=== PATIENT | female | born 1975 | race Caucasian/White ===

== ENCOUNTER 2019-01-07 06:52 | Inpatient (IN) ==
[2019-01-07] MEDS ORDERED: SODIUM CHLORIDE 0.9% INJ ONE ×2 (07:00→09:54)
[2019-01-07] MEDS ORDERED: PEPCID IV ONE (07:00)
[2019-01-07] MEDS ORDERED: ZOFRAN IV ONE (07:00)
[2019-01-07] MEDS ORDERED: MORPHINE IV ONE ×2 (07:00→08:58)
[2019-01-07] MEDS ORDERED: NS 1,000 ML IV ONE ×3 (07:00→09:20)
[2019-01-07] MEDS ORDERED: HUMULIN R IV ONE ×2 (07:00→11:15)
--- NOTE | 2019-01-07 07:10 | PROVIDER DOCUMENTATION ---
HPI-Abdominal Pain/GI Problem - General Chief Complaint: Nausea/Vomiting Stated Complaint: n/v Time Seen by Provider: 01/07/19 06:57 Source: patient, EMS Allergies/Adverse Reactions: Patient Allergies Allergy/AdvReac Type Severity Reaction Status Date / Time No Known Allergies Allergy Verified 01/07/19 08:09 Home Medications: Home Medication List Medication Instructions Recorded Confirmed Last Taken Type NK [No Home Medications] 01/07/19 01/07/19 Unknown History - History of Present Illness-ABD Nature of Presenting Problems: No significant past medical history, this 43 yo female states she got sick about 3 days ago while travelling. Began with N/V and then developed right sided chest pain. This morning was confused, so mother called 911. EMS found patient altered, ill appearing with D-Stick reading greater than 600. States has never been a diabetic, no history in family of DM. Patient is a tobacco user, but denies drug or alcohol. Takes no meds. Abdominal Pain Onset Location: reports: RUQ Pain Radiation: reports: chest (right sided chest pain) Quality of Pain: reports: aching, sharp, stabbing Severity in ED: reports: severe Onset/Duration: reports: 3 days ago Timing: reports: still present, constant, getting worse Activities at Onset: reports: light activity, other (travelling) Exposure to sick contacts?: No Modifying Factors: improves with: nothing. worse with: vomiting Associated Symptoms: reports: anxiety, diaphoresis, dizziness, fatigue, loss of appetite, malaise, muscle aches, nausea, shortness of breath, vomiting, weakness Last BM: unsure Dark Stools Present?: reports: none noticed Rectal Pain: reports: none Emesis Description: reports: clear Bruising or Bleeding Gums?: No Similar Symptoms Previously?: No Recently seen or treated by another doctor?: No Review of Systems - Adult - REVIEW OF SYSTEMS - ADULT Constitutional: reports: see HPI, chills, weight loss Eyes: reports: blurred vision (the last day or two). denies: discharge, dry eyes, decreased vision Ears, Nose, Mouth & Throat: reports: no symptoms reported Cardiovascular: reports: see HPI, chest pain (right sided). denies: heart murmur, irregular heart rate, orthopnea, palpitations, syncope Respiratory: reports: see HPI, shortness of breath. denies: chronic cough, cough, dyspnea on exertion, excessive sputum production, hemoptysis, pleurisy, wheezing Gastrointestinal: reports: see HPI, abdominal pain (RUQ), nausea, poor appetite, vomiting. denies: hematemesis, diarrhea Genitourinary: reports: frequency, urgency. denies: dysuria, discharge, flank pain, frequent UTI's, hematuria, hesitency, incontinence, urinary retention Musculoskeletal: reports: see HPI, muscle aches, muscle weakness Integumentary: reports: no symptoms reported Neurological: reports: no symptoms reported Psychiatric: reports: no symptoms reported Endocrine: reports: increased thirst, polyuria. denies: see HPI, change in skin pigment, excessive sweating, goiter, cold intolerance, heat intolerance, incr eased hunger Hematologic/Lymphatic: reports: no symptoms reported Allergic/Immunologic: reports: no symptoms reported All Other Systems: Reviewed and Negative Past History - Adult - PAST MEDICAL HISTORY-ADULT Review of Records: reports: Old Records Reviewed, Nursing Assessment Review, Medications Reviewed, Social history reviewed & non-contributory. Major Childhood Illnesses: reports: denies history Cardiovascular: reports: denies history Respiratory: reports: denies history Gastrointestinal: reports: denies history Obstetrical/Gynecological: reports: denies history Genitourinary: reports: denies history Musculoskeletal: reports: denies history Neurological: reports: denies history Psychiatric: reports: anxiety Endocrine/Immune: reports: denies history Other Conditions: reports: denies history - PRIOR SURGERIES/PROCEDURES Surgical/Procedure History: reports: reviewed, not pertinent - IMMUNIZATION STATUS Childhood Immunizations: UTD Flu Vaccine: NUTD - FAMILY HISTORY Family History: reviewed, not pertinent - SOCIAL HISTORY Smoking: cigarettes, greater than 1 pack/day Provider spent 3-5 mins advising pt. on dangers of tobacco.: Discussed manners to quit use, and f/u contacts for add'l counseling. Substance Use: none/never Alcohol Use Frequency: never Living Situation: family Physical Exam-General - PHYSICAL EXAM-ADULT Initial Vital Signs Reviewed: Yes (tachycardic, tachypneic, acetone on breath) - CONSTITUTIONAL General Appearance: moderate distress, thin, anxious, lethargic, other (dry heaving) - EYES Eyes: sunken eyes - HEAD, EARS, NOSE, MOUTH & THROAT HENMT: normocephalic/atraumatic, other (dry mucous membrane). negative: pharynx normal - NECK Neck: non-tender, full range of motion, supple, normal inspection - RESPIRATORY Respiratory: chest non-tender, lungs clear, no respiratory distress, decreased breath sounds, increased rate - CARDIOVASCULAR Cardiovascular: normal peripheral pulses, regular rate, rhythm, no edema, no gallop, tachycardia - GASTROINTESTINAL (ABDOMEN) Abdominal Exam: normal bowel sounds, non tender, soft, tenderness (mild diffuse and RUQ pain) - LYMPHATIC Lymphatic: no adenopathy - MUSCULOSKELETAL Back Exam: normal inspection, no CVA tenderness, no vertebral tenderness Extremity: normal range of motion, non-tender, normal inspection, no pedal edema , no calf tenderness, normal capillary refill - SKIN Integumentary: warm/dry, pallor, other (poor turgor) - NEUROLOGIC 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, grossly normal, no motor/sensory deficits - PSYCHIATRIC Psych/Mental Status: normal thought content, normal thought process, oriented x 3, anxious Progress - PLAN OF CARE/RESULTS Progress/Plan/Lab Results: Laboratory Results - last 24 hr 01/07/19 06:58 POC Glucose 469 H Orders Category Date Time Status ED: Urine Bedside ORDERED Care 01/07/19 07:04 Ordered Finger Stick Blood Sugar (ED) DIRECTED Care 01/07/19 06:58 Ordered Frias Cath Insertion ORDERED Care 01/07/19 06:58 Ordered Nursing- Obtain EKG once Care 01/07/19 06:58 Ordered Saline Loc NOW Care 01/07/19 06:58 Ordered CHEST-PORTABLE [RAD] Stat Exams 01/07/19 06:59 Ordered ABG [RESP] Stat Lab 01/07/19 06:58 Ordered ACETONE SERUM [CHEM] Stat Lab 01/07/19 06:58 Uncollected ALCOHOL BLOOD Stat Lab 01/07/19 06:58 Uncollected BLOOD CULTURE [BLDCUL] Stat Lab 01/07/19 06:58 Uncollected CBC WITH ELECTRONIC DIFF [HEME] Stat Lab 01/07/19 06:58 Uncollected CK PROFILE [SP CHEM] Stat Lab 01/07/19 06:58 Uncollected COMPREHENSIVE METABOLIC PANEL [CHEM] Stat Lab 01/07/19 06:59 Uncollected D-DIMER [COAG] Stat Lab 01/07/19 06:59 Uncollected LACTATE, PLASMA [CHEM] Stat Lab 01/07/19 06:59 Uncollected LIPASE [CHEM] Stat Lab 01/07/19 06:59 Uncollected MAGNESIUM [CHEM] Stat Lab 01/07/19 06:59 Uncollected PRO B-NATRIURETIC PEPTIDE Stat Lab 01/07/19 06:59 Uncollected TROPONIN T Stat Lab 01/07/19 06:59 Uncollected URINALYSIS W/POSS RFLX CULT [URINALYSIS] Stat Lab 01/07/19 06:59 Uncollected URINE DRUG SCREEN Stat Lab 01/07/19 06:59 Uncollected phos [PHOSPHORUS] [CHEM] Stat Lab 01/07/19 06:59 Uncollected Famotidine [Pepcid] Med 01/07/19 07:00 Once 20 mg IV NOW ONE Insulin Human Regular [Humulin R] Med 01/07/19 07:00 Once 10 unit IV NOW ONE Morphine Med 01/07/19 07:00 Once 2 mg IV NOW ONE Ns 1000 ml IV Bolus X1 Med 01/07/19 07:00 Ordered 0.9% Sodium Chloride Inj [Ns] 1,000 ml IV 999 mls/hr Ns 1000 ml IV Bolus X1 Med 01/07/19 07:00 Ordered 0.9% Sodium Chloride Inj [Ns] 1,000 ml IV 999 mls/hr Ondansetron [Zofran] Med 01/07/19 07:00 Once 4 mg IV NOW ONE Sodium Chloride 0.9% Med 01/07/19 07:00 Once 5 - 10 ml INJ NOW ONE EKG [EKG] Stat Ther 01/07/19 06:54 Ordered Result Diagrams: 01/07/19 07:30 01/07/19 07:30 - REASSESSMENT Reassessment #1 Time Reassessed: 08:56 Status: improving (Given 2L of IVF, IV insulin bolus and drip. ALso given multiple meds for nausea and pain. I supervised RN placing left sided EJ line) - EKG 1 Time of EKG reading by physician:: 07:18 EKG Read and Signed by:: Hi Blue EKG Interpretation (*Must complete 3 of following elements*): Abnormal Rate: 122 Rhythm: sinus tachy [place]: normal QRS: poor R wave progression ID Interval: normal ST Wave: non-specific ST changes Prior EKG Comparison: no prior EKG - XRAY 1 XRAY Study: Chest Impression: Normal, See EMR Report (EXAM: CHEST-PORTABLE INDICATION: right chest pain TECHNIQUE: One view COMPARISON: None. FINDINGS: The lungs are grossly clear. There is no discrete pleural fluid collection or pneumothorax. The cardiomediastinal silhouette and central vasculature are grossly unremarkable. IMPRESSION: No evidence of acute pathology by plain radiograph. Electronically signed by Filipe Estrada 01/07/2019 8:13 AM 01/07/19 0813 Interpreting Physician: Filipe Estrada MD Dictated Date/Time: 01/07/19 0812 cc: Hi Blue MD; None,PCP) - CONSULTS/PCP/HOSPITALIST Notification #1 *Consult/PCP/Hospitalist*: Мария Nina Time Discussed: 08:57 Consult Disposition: Will see in ED, Admit Departure - Departure Date of Disposition Decision: 01/07/19 Time of Disposition Decision: 08:59 DIAGNOSIS: Diabetes mellitus, new onset, Right-sided chest pain Diabetic ketoacidosis without coma Qualifiers: Diabetes mellitus type: type 2 Qualified Code(s): E11.10 - Type 2 diabetes mellitus with ketoacidosis without coma Disposition: ADMITTED INPATIENT 09 Certified Medical Emergency: Emergent Condition: Critical Referrals and Follow-Ups: None,PCP [Primary Care Provider] - - Critical Care Note This patient required my direct & personal management of CC.: Yes Total Time (mins): 40 Critical Care Statement: This patient required my direct personal management to treat or rule out processes, the absence of which, could potentiallly result in sudden, clinically significant life or limb threatening deterioration. Attestation - Physician/ EDMOND Attestation Patient care was provided by Advanced Practice Provider:: No The physician spent face to face time with patient:: Yes Advanced Practice Provider documentation review:: Supervising physician onsite and consulted in the evaluation and care of this patient. The physician did have a face to face encounter with the patient.
[2019-01-07] MEDS ORDERED: PHENERGAN IM ONE (07:20)
[2019-01-07] MEDS ORDERED: REGLAN IV ONE (07:37)
[2019-01-07] MEDS ORDERED: BENADRYL IV ONE (07:37)
[2019-01-07 07:58] LABS: BASO# 0.07 X1000 (0.0-0.2); BASO% 0.2 % (0.0-0.8); HEMATOCRIT 46.3 % (37.0-47.0); HEMOGLOBIN 15.3 g/dL (12.0-16.0); IMM GRAN% 1.3 % (0.0-0.5); LYMPH# 3.64 X1000 (1.2-3.4); LYMPH% 9.2 % (20.5-51.1); MCH 26.2 PG (27-31); MCV 79.4 FL (81-99); MONO# 2.68 X1000 (0.11-0.59); MONO% 6.8 % (1.7-9.3); MPV 9.1 FL (7.4-10.4); NEUT# 32.72 X1000 (1.4-6.5); NEUT% 82.5 % (42.2-75.2); PLT 604 X1000 (130-400); RBC 5.83 XMIL (4.2-5.4); RDW 12.9 % (11.5-14.5); WBC 39.61 X1000 (4.8-10.8)
[2019-01-07 07:58] LABS: ALLEN TEST YES; BLOOD TYPE ARTERIAL; HCO3-(ACT) 7.7 mmoll (20.0-26.0); METHB 1.3 % (0.0-1.5); O2(CT) 21.4 mL/dL (15.0-23.0); O2HB 96.8 % (95.0-99.0); PO2(98.6) 129 mmHg (60-100); SAMPLE BLOOD; THB 15.6 g/dL (11.5-17.4)
[2019-01-07 08:00] LABS: pH(98.6) 7.17 (7.35-7.45)
[2019-01-07 08:01] LABS: PCO2(98.6) 10 mmHg (35-45)
[2019-01-07] MEDS ORDERED: HUMULIN R 100 UNIT in NS 99 ML IV ONE (08:02)
[2019-01-07 08:13] LABS: ACETONE SERUM MODERATE (NEGATIVE)
--- NOTE | 2019-01-07 08:15 | Diag Imaging Result Doc PS360 ---
EXAM: CHEST-PORTABLE INDICATION: right chest pain TECHNIQUE: One view COMPARISON: None. FINDINGS: The lungs are grossly clear. There is no discrete pleural fluid collection or pneumothorax. The cardiomediastinal silhouette and central vasculature are grossly unremarkable. IMPRESSION: No evidence of acute pathology by plain radiograph. Electronically signed by Filipe Estrada 01/07/2019 8:13 AM
[2019-01-07 08:20] LABS: BANDS 2 % (0-1); LYMPHS 11 % (21-51); MONO 4 % (1-9); SEGS 81 % (42-75)
[2019-01-07 08:28] LABS: URINE SOURCE CATH
[2019-01-07 08:29] LABS: AGAP 45; ALB/GLOB RATIO 1.4; ALBUMIN 5.3 g/dL (3.5-5.0); ALKALINE PHOSPHATASE 210 U/L (32-104); BUN 45 mg/dL (8-22); CALCIUM 10.4 mg/dL (8.8-10.2); CHLORIDE 86 mmol/L (98-107); CK PROFILE 165 U/L (24-173); COSMO 310; CREATININE 1.2 mg/dL (0.5-0.9); ESTIMATED GFR 49; GOT 19 U/L (10-30); GPT 25 U/L (10-36); LIPASE 27 U/L (13-60); MAGNESIUM 2.5 mg/dL (1.5-2.7); PHOSPHORUS 7.1 mg/dL (2.7-4.5); POTASSIUM 4.3 mmol/L (3.5-5.1); SODIUM 134 mmol/L (136-145); TCO2 3 mmol/L (25-35); TOTAL BILIRUBIN 0.41 mg/dL (0.20-1.00); TOTAL PROTEIN 9.2 g/dL (6.3-8.3)
[2019-01-07 08:34] LABS: GLUCOSE 651 mg/dL (70-104)
[2019-01-07 08:40] LABS: UR AMPHETAMINES QUAL NONE DETECTED (NONE DETECT); UR BARBITUATES QUAL NONE DETECTED (NONE DETECT); UR BENZODIAZEPIN QUAL NONE DETECTED (NONE DETECT); UR CANNABINOIDS QUAL NONE DETECTED (NONE DETECT); UR COCAINE QUAL NONE DETECTED (NONE DETECT); UR METHADONE QUAL NONE DETECTED (NONE DETECT); UR OPIATES QUAL NONE DETECTED (NONE DETECT); UR OXYCODONE QUAL NONE DETECTED (NONE DETECT); UR PCP QUAL NONE DETECTED (NONE DETECT)
[2019-01-07 08:41] LABS: BILIRUBIN URINE NEGATIVE (NEGATIVE); BLOOD URINE NEGATIVE (NEGATIVE); COLOR YELLOW; GLUCOSE URINE >1000 mg/dL (NEGATIVE); KETONE URINE >150 mg/dL (NEGATIVE); LEUKOCYTES URINE NEGATIVE (NEGATIVE); NITRITE URINE NEGATIVE (NEGATIVE); PROTEIN URINE TRACE mg/dL (NEGATIVE); TURBIDITY URINE CLEAR (CLEAR); UROBILINOGEN URINE NORMAL (NORMAL)
[2019-01-07 09:04] LABS: SP GRAVITY URINE 1.016; UR EPITHELIAL CELLS <10 /HPF (<10); URINE BACTERIA NEGATIVE /HPF; URINE RBC <10 /HPF (<10); URINE WBC <10 /HPF (<10)
[2019-01-07] MEDS ORDERED: PROTONIX IV ONE (09:54)
--- NOTE | 2019-01-07 10:39 | Diag Imaging Result Doc PS360 ---
EXAM: CT THORAX/ABDOMEN W/O CONTRAST INDICATION: Eval for esophageal rupture, gastroenteritis TECHNIQUE: This exam was performed using automated exposure control, adjustment of mA or kV according to patient size, and/or use of iterative reconstruction technique. COMPARISON: None. FINDINGS: CHEST: The lungs are clear. There are no airspace consolidations. There is no pleural fluid collection and no pneumothorax. There is no pneumomediastinum. There is gas in the esophageal lumen and the esophageal wall appears somewhat thickened suggesting possible esophagitis. There are no abnormal mediastinal fluid collections. No discrete mediastinal or hilar lymphadenopathy is identified. There is no cardiomegaly. The bony structures of the thorax are grossly intact. ABDOMEN/PELVIS: There has been a prior cholecystectomy. The liver, spleen, pancreas, adrenal glands, and kidneys are unremarkable. There is a Frias catheter in the lumen of the urinary bladder. The bladder is partially distended. There is air in the lumen of the urinary bladder are seen to be due to catheter placement. No urinary bladder wall thickening is identified. There has been a prior hysterectomy. The appendix is normal. There is focal narrowing involving the ascending colon that can be seen on image 124 series 3. It is nonspecific. It may simply represent peristalsis. However, it would be difficult to exclude underlying stricture or mass. There is no evidence of bowel obstruction. No other focal bowel wall thickening is identified. The remainder of the GI tract is grossly unremarkable by unenhanced CT. The bony structures of the abdomen and pelvis are grossly intact. IMPRESSION: 1.At least mild thickening of the esophageal wall with patchy luminal gas suggesting possible esophagitis. There is no sign of esophageal perforation. 2.Focal narrowing of a short segment of the ascending colon. Please see above discussion. 3.Other incidental/nonacute findings detailed above. Electronically signed by Filipe Estrada 01/07/2019 10:37 AM
[2019-01-07 11:13] LABS: PTT 30.5 Seconds (22.3-41.8)
--- NOTE | 2019-01-07 11:13 | HISTORY AND PHYSICAL ---
CHIEF COMPLAINT: Nausea, vomiting with right-sided chest pain. HISTORY OF PRESENT ILLNESS: This is a 43-year-old female who denies any prior health history who presented to the emergency room after 911 was called by her aunt after finding the patient confused. She reports being in her usual state of health until 3 days ago. She developed a sudden onset of nausea and vomiting associated with abdominal pain. During the night symptoms became intractable with associated right sided chest pain and black vomitus. Her aunt found her confused this morning and called 911. According to EMS, the patient was altered with dry heaves with a blood glucose reading greater than 600. ER work up revealed elevated anion gap metabolic acidosis with ketosis and blood glucose 651. Of note, the patient's mother last week with her being yesterday in [place]. She and her aunt are traveling back to [place] which is their home. PAST MEDICAL HISTORY: Denies. PAST SURGICAL HISTORY: Denies. SOCIAL HISTORY: She smokes. She denies alcohol or illicit drug use. ALLERGIES: No known drug allergies. HOME MEDICATIONS: None. REVIEW OF SYSTEMS: Discussed with the patient with pertinent positives stated in HPI. She denied any syncope, dizziness, any palpitations, any cough, fever, chills, any night sweats, any black or bloody vomitus, any diarrhea, constipation, black or bloody stools, any hematuria, dysuria. PHYSICAL EXAMINATION: GENERAL: This is a 43-year-old, very ill-appearing female who is lying in the stretcher in the emergency room. VITAL SIGNS: Blood pressure is 106/76 with a heart rate of 126. It is ranging from 120 to 132 it looks like. Respirations are 24 to 26, O2 saturations are 100%. EYES: Pupils are equal, round, react to light. EOMs are intact. Sclerae anicteric. HEAD, EARS, NOSE, AND THROAT: Head is normocephalic, atraumatic. Mucous membranes are dry. NECK: Supple with trachea midline. CARDIOVASCULAR: Regular rate and rhythm. S1 and S2 appreciated. She has no lower extremity edema. Calves are nontender bilateral with peripheral pulses palpable x4 extremities. PULMONARY: Breath sounds are clear. No increased work of breathing noted. Chest rises and falls symmetric respiration. Chest wall is nontender to palpation GASTROINTESTINAL: Abdomen is soft. She has generalized tenderness. Nondistended with bowel sounds in all 4 quadrants. NEUROLOGIC: She is alert. She is oriented to person and family. She knows she is at the hospital but does not remember what state or what hospital. SKIN: Warm and dry with poor turgor. LABORATORY STUDIES: WBC is 39.6 with hemoglobin 15.3, hematocrit 46.3, and platelets 604,000. D- dimer is less than 0.27. Sodium 134, potassium 4.3, BUN 45, creatinine 1.2 with a glucose of 651. Alkaline phosphatase is 210. Urinalysis is essentially negative. Urine drug screen reveals none detected. Acetone is moderate. Chest x-ray reveals no evidence of acute pathology. ASSESSMENT: 1. Diabetic ketoacidosis. The patient will be admitted to ICU. She will be placed on DKA protocol. 2. New onset diabetes mellitus. 3. Right-sided chest pain. continue to trend cardiac enzymes and troponins. Telemetry. 4. Gastrointestinal bleed. The patient has positive Gastroccult as well as stool for occult blood. Protonix 80 mg IV push now and then 40 mg IV b.i.d., Carafate liquid q.[address] of the chest, abdomen, and pelvis. We will check a CBC at 2 p.m. and in the morning. If H&H decline, GI will be consulted. 5. Leukocytosis. Blood cultures, urine cultures are pending. We will start antibiotics and follow. 6. Acute kidney injury. We will provide hydration and trend labs q.4 h. 7. For DVT prophylaxis will use SCDs and GI prophylaxis of Protonix. PLAN: The patient will be admitted to ICU. Will be placed on telemetry. Further treatments pending hospital course. Dictated by SHELBY Daly for Michel Pierce MD cc: SHELBY Daly MD I agree with most components of history, physical, assessment and plan. A separate addendum has been dictated. GURWINDER
[2019-01-07] MEDS ORDERED: POTASSIUM CHLORIDE 10% LIQUID PO PRN (11:15)
[2019-01-07] MEDS ORDERED: HUMULIN R 100 UNIT in NS 99 ML IV SCH (11:15)
[2019-01-07] MEDS ORDERED: SODIUM PHOSPHATE 30 MMOL in D5W 250 ML IV PRN (11:15)
[2019-01-07] MEDS ORDERED: POTASSIUM CHLORIDE 40 MEQ/SWI 40 MEQ/100 ML IVPB IV PRN (11:15)
[2019-01-07] MEDS ORDERED: POTASSIUM CHLORIDE 20% LIQUID PO PRN (11:15)
[2019-01-07] MEDS ORDERED: MAGNESIUM SULFATE 2 GM/S.W.I. 2 GM/50 ML IVPB IV PRN (11:15)
[2019-01-07] MEDS ORDERED: D50W SYRINGE IV PRN (11:15)
[2019-01-07] MEDS ORDERED: SODIUM BICARBONATE 8.4% 100 MEQ in STERILE WATER INJ. 500 ML IV PRN (11:15)
[2019-01-07] MEDS: D5 NS 1,000 ML IV SCH ×2 (11:29→17:00)
[2019-01-07] MEDS: NS 1,000 ML IV SCH ×2 (11:34→18:21)
[2019-01-07 12:10] LABS: AGAP 26; BUN 36 mg/dL (8-22); CALCIUM 8.2 mg/dL (8.8-10.2); CHLORIDE 104 mmol/L (98-107); COSMO 298; CREATININE 0.9 mg/dL (0.5-0.9); ESTIMATED GFR > 60; GLUCOSE 324 mg/dL (70-104); PHOSPHORUS 2.9 mg/dL (2.7-4.5); POTASSIUM 3.5 mmol/L (3.5-5.1); SODIUM 139 mmol/L (136-145); TCO2 9 mmol/L (25-35)
[2019-01-07 12:28] LABS: CK INDEX 1.8 (0.0-2.5); CK-MB 5.54 ng/mL (0.0-5.0)
--- NOTE | 2019-01-07 13:31 | HISTORY AND PHYSICAL ---
Addendum to History and Physical dictated by the nurse practitioner. I agree with most components of history, physical, assessment, and plan. In brief, Ms. Mays is a 43-year-old lady with past medical history of cerebrovascular accident in 2016 without any residual defects and no other known past medical history, who came in with chief complaints of nausea/vomiting and abdominal pain of about 3 days' duration. The patient was in her usual state of health until 3 days ago when she had visited [place] for the of her mother. Later on, she suddenly started developing nausea and vomiting multiple times, associated with abdominal pain. Today morning, her nausea/vomiting, abdominal pain become intractable]and she also started developing chest pain and so she came to this hospital. History is limited as patient is in excruciating pain and is not able to communicate very well because of pain, and no other family members are present. In the emergency room, she was found to have elevated anion gap metabolic acidosis with hyperglycemia and ketosis, likely DKA. She also had bloody vomitus as per the report, so hospitalist team was consulted for further management. At the time of my evaluation, she complains that her chest hurts and her abdomen hurts and she has been in a lot of pain. We discussed about her clinical exam findings, lab findings, and I answered all of her questions. She denies any known history of diabetes. PHYSICAL EXAMINATION: VITALS: Temperature of 97.3, pulse of 110, respiratory rate 20, blood pressure 110/85, saturating 99% on 2 L nasal cannula. GENERAL: On physical examination, patient is in moderate distress because of chest and abdominal pain. HEENT: Pupils are bilaterally equal, reacting to light. Oral cavity is dry. There are flecks of old blood that I could see adherent to soft and hard palate. No tonsillar enlargement. LUNGS: Air entry bilaterally equal. No wheeze, rhonchi, crackles. CARDIOVASCULAR: S1, S2 normal. No murmur, rub, or gallop. Tachycardic. ABDOMEN: Soft. There is generalized tenderness, especially in the epigastric and hypogastric region. GENITOURINARY: She has a urine catheter in place. EXTREMITIES: No extremity edema. NEUROLOGIC: She is tossing in the bed and does not appear to have any focal weakness. LABORATORY DATA: Labs suggestive of leukocytosis, normocytic anemia normal thrombocytosis. Coagulation profile, PT, INR and PTT have not been collected yet, which I have ordered. BMP suggestive of hyponatremia, hypochloremia. She has what appears to be kidney dysfunction. We do not have prior laboratories. She does have hypercalcemia, hyperphosphatemia, hyperglycemia, elevated anion gap metabolic acidosis which is well compensated. There is also a component of contraction metabolic alkalosis. MICROBIOLOGY: Group A rapid Streptococcus antigen was negative. Influenza screen was negative. Stool culture and gastric occult blood are positive. Blood cultures are pending. IMAGING: Chest x-ray on admission did not have any acute pathology. Chest, abdomen CT had detected esophagitis, possibly focal. Ascending colon narrowing which could also be related to peristalsis. ASSESSMENT AND PLAN: 1. Diabetic ketoacidosis, likely in the setting of new onset diabetes. 2. Chest pain and abdominal pain, likely in the setting of intractable nausea and vomiting in the setting of diabetic ketoacidosis. 3. Upper gastrointestinal bleed, likely related to Mony-Mendoza tear versus acute gastritis versus peptic ulcer disease. 4. Kidney dysfunction likely due to JUMA with hyponatremia, hypochloremia, hypercalcemia, and hypophosphatemia, also in the setting of volume depletion. PLAN: I will get coagulation studies. The patient has already received intravenous fluids. We will continue to give her intravenous fluids and insulin according to DKA protocol with close monitoring of electrolytes. We will start her on pantoprazole IV q.12 h. If her hematocrit drops significantly low, at that point I will consider consulting Gastroenterology for need for EGD. I will admit the patient in ICU for profound metabolic acidosis and DKA with suspected hematemesis and upper GI bleed. Plan of care discussed with the patient. All of her questions have been answered. COORDINATION TIME: More than 30 minutes were spent in taking care of this critically ill patient. cc: Michel Pierce MD [facility]Michael
[2019-01-07] MEDS: CARAFATE LIQUID PO SCH ×2 (13:48→20:31)
[2019-01-07] MEDS: ZOFRAN IV PRN ×2 (14:54→19:40)
[2019-01-07] MEDS: MORPHINE IV PRN ×2 (14:54→18:00)
[2019-01-07] MEDS ORDERED: POTASSIUM CHLORIDE 20 MEQ/SWI 20 MEQ/100 ML IVPB IV ONE (16:30)
--- NOTE | 2019-01-07 16:34 | Diag Imaging Result Doc PS360 ---
EXAM: CHEST-PORTABLE INDICATION: central line placement TECHNIQUE: One view COMPARISON: 01/07/2019 FINDINGS: There is a newly placed right IJ line. The tip projecting over the lower SVC in the expected position. The lungs remain clear. There is no discrete pleural fluid collection or pneumothorax. The cardiomediastinal silhouette and central vasculature are grossly unremarkable. IMPRESSION: Interval placement of a right IJ line with no evidence of pneumothorax postplacement. Electronically signed by Filipe Estrada 01/07/2019 4:32 PM
[2019-01-07 17:55] LABS: HEMATOCRIT 37.2 % (37.0-47.0); HEMOGLOBIN 12.7 g/dL (12.0-16.0); MCH 26.8 PG (27-31); MCHC 34.1 g/dL (33-37); MCV 78.5 FL (81-99); MPV 8.5 FL (7.4-10.4); RBC 4.74 XMIL (4.2-5.4); RDW 12.8 % (11.5-14.5); WBC 23.48 X1000 (4.8-10.8)
[2019-01-07 18:21] LABS: AGAP 18; BUN 24 mg/dL (8-22); CALCIUM 8.6 mg/dL (8.8-10.2); CHLORIDE 117 mmol/L (98-107); COSMO 309; CREATININE 0.7 mg/dL (0.5-0.9); ESTIMATED GFR > 60; GLUCOSE 195 mg/dL (70-104); MAGNESIUM 2.1 mg/dL (1.5-2.7); PHOSPHORUS 2.4 mg/dL (2.7-4.5); SODIUM 151 mmol/L (136-145); TCO2 16 mmol/L (25-35)
--- NOTE | 2019-01-07 18:24 | OPERATIVE NOTE ---
PROCEDURE DATE: 01/07/2019 NAME OF PROCEDURE: Right-sided internal jugular intravenous central line placement. INDICATION FOR PROCEDURE: Need for intravenous access for delivery of medications. The patient had poor peripheral IV access. PROCEDURE PERFORMED BY: Dr. Michel Pierce. CONSENT: Initially, an ultrasound-guided peripheral IV line was attempted which was unsuccessful. The patient was explained about the need for a good intravenous access for the delivery of medication, and central line option was provided. Benefits of central line versus risks of central line, such as introduction of infection, bleeding, and pneumothorax, were explained to the patient. After understanding the risks versus benefits, the patient herself had provided consent to get the central line. Prior to beginning the procedure, time out confirmed patient date of , site, and the procedure. PROCEDURE: Sterile precautions were taken. Initially, the area of the right neck was cleaned with Betadine. The patient was put in Trendelenburg position. During the entire procedure, her hemodynamics, including pulse, blood pressure, and cardiac rhythm, were monitored in ICU. Proper site was identified using an ultrasound. 1% of lidocaine was injected to numb the internal jugular area. After maintaining sterile precautions, a needle was introduced under ultrasound guidance in the right-sided internal jugular vein with gush of blood return. Then, a guidewire was introduced and needle was removed, keeping the guidewire always under control. A scalpel was used to make a daniel around the guidewire, and a dilator was introduced to dilate the area around the guidewire. Later on, a triple-lumen central line catheter was introduced over the guidewire. The guidewire was withdrawn through the brown port of the central line, and as soon as the guidewire came out, central line was introduced up to 15 cm. After introduction of the central line, flushes were used to confirm the blood flow in all 3 ports. Then, the central line was sutured and secured over the neck region. A sterile dressing was applied. The patient tolerated the procedure very well. Chest x-ray was performed which had confirmed central line in right- sided superior vena cava without any pneumothorax. cc: Michel Pierce MD [facility]
[2019-01-07 18:55] LABS: HEMOGLOBIN A1C 15.7 % (4.8-6.0)
[2019-01-07 19:01] LABS: CK INDEX 1.4 (0.0-2.5); CK-MB 5.23 ng/mL (0.0-5.0)
[2019-01-07] MEDS ORDERED: TYLENOL PR PRN (19:11)
[2019-01-07] MEDS: D5 1/2 NS 1,000 ML IV SCH (19:39)
--- NOTE | 2019-01-07 20:16 | PROGRESS NOTE ---
DATE: 01/07/2019 ADDENDUM: I inserted a central line and then I talked with the nurse. Apparently patient was still having abdominal pain so I have changed her pain regimen to hydromorphone 1 mg IV every 4 hours as needed. I also started patient on acetaminophen if she develops fever. Patient has not had any bloody vomiting since she has been in the hospital. I will continue to monitor CBC. If her hemoglobin drops tomorrow also considering hemodilution aspect of it I will consider consulting Gastroenterology tomorrow, however currently she appears to be maintaining her blood pressure well. cc: Michel Pierce MD
[2019-01-07] MEDS: PROTONIX IV SCH (21:22)
[2019-01-07] MEDS: DILAUDID IV PRN (21:43)
[2019-01-07 22:22] LABS: AGAP 13; BUN 21 mg/dL (8-22); CALCIUM 8.4 mg/dL (8.8-10.2); CHLORIDE 117 mmol/L (98-107); COSMO 303; CREATININE 0.7 mg/dL (0.5-0.9); ESTIMATED GFR > 60; GLUCOSE 234 mg/dL (70-104); PHOSPHORUS 1.4 mg/dL (2.7-4.5); POTASSIUM 3.9 mmol/L (3.5-5.1); SODIUM 147 mmol/L (136-145); TCO2 17 mmol/L (25-35)
[2019-01-07] MEDS: POTASSIUM CHLORIDE 20 MEQ/SWI 20 MEQ/100 ML IVPB IV PRN (22:56)
[2019-01-08] MEDS: CARAFATE LIQUID PO SCH ×4 (01:13→20:58)
[2019-01-08] MEDS: ZOFRAN IV PRN ×2 (01:37→08:10)
[2019-01-08] MEDS: DILAUDID IV PRN ×7 (01:38→23:23)
[2019-01-08] MEDS: D5 1/2 NS 1,000 ML IV SCH ×4 (02:28→23:22)
[2019-01-08 02:30] LABS: AGAP 13; BUN 16 mg/dL (8-22); CALCIUM 8.5 mg/dL (8.8-10.2); CHLORIDE 118 mmol/L (98-107); COSMO 303; CREATININE 0.6 mg/dL (0.5-0.9); ESTIMATED GFR > 60; GLUCOSE 238 mg/dL (70-104); POTASSIUM 3.5 mmol/L (3.5-5.1); SODIUM 148 mmol/L (136-145); TCO2 17 mmol/L (25-35)
[2019-01-08 02:51] LABS: MAGNESIUM 2.1 mg/dL (1.5-2.7); PHOSPHORUS 1.5 mg/dL (2.7-4.5)
[2019-01-08] MEDS: POTASSIUM CHLORIDE 20 MEQ/SWI 20 MEQ/100 ML IVPB IV PRN ×4 (02:51→16:50)
[2019-01-08 05:57] LABS: ALLEN TEST YES; BE -5.6 mmoll (-3.0-3.0); BLOOD TYPE ARTERIAL; HCO3-(ACT) 20.5 mmoll (20.0-26.0); METHB 1.4 % (0.0-1.5); O2(CT) 17.1 mL/dL (15.0-23.0); O2HB 96.3 % (95.0-99.0); PCO2(98.6) 29 mmHg (35-45); PO2(98.6) 108 mmHg (60-100); SAMPLE BLOOD; SAO2 99.5 % (95.0-100.0); THB 12.5 g/dL (11.5-17.4)
[2019-01-08 05:58] LABS: MODALITY ROOM AIR
[2019-01-08 06:15] LABS: BASO# 0.02 X1000 (0.0-0.2); BASO% 0.1 % (0.0-0.8); EOS# 0.01 X1000 (0.0-0.7); EOS% 0.1 % (0.0-10.0); HEMATOCRIT 36.7 % (37.0-47.0); HEMOGLOBIN 12.5 g/dL (12.0-16.0); IMM GRAN# 0.08 X1000 (0.0-0.04); IMM GRAN% 0.4 % (0.0-0.5); LYMPH# 1.88 X1000 (1.2-3.4); LYMPH% 9.4 % (20.5-51.1); MCH 26.8 PG (27-31); MCHC 34.1 g/dL (33-37); MCV 78.6 FL (81-99); MONO# 1.44 X1000 (0.11-0.59); MONO% 7.2 % (1.7-9.3); MPV 8.6 FL (7.4-10.4); NEUT# 16.52 X1000 (1.4-6.5); NEUT% 82.8 % (42.2-75.2); PLT 421 X1000 (130-400); RBC 4.67 XMIL (4.2-5.4); RDW 13.2 % (11.5-14.5); WBC 19.95 X1000 (4.8-10.8)
[2019-01-08 06:32] LABS: AGAP 15; ALB/GLOB RATIO 1.2; ALBUMIN 3.8 g/dL (3.5-5.0); ALKALINE PHOSPHATASE 135 U/L (32-104); BUN 12 mg/dL (8-22); CALCIUM 8.9 mg/dL (8.8-10.2); CHLORIDE 117 mmol/L (98-107); COSMO 303; CREATININE 0.6 mg/dL (0.5-0.9); ESTIMATED GFR > 60; GLUCOSE 232 mg/dL (70-104); GOT 16 U/L (10-30); GPT 15 U/L (10-36); MAGNESIUM 2.2 mg/dL (1.5-2.7); PHOSPHORUS 1.5 mg/dL (2.7-4.5); POTASSIUM 3.9 mmol/L (3.5-5.1); SODIUM 149 mmol/L (136-145); TCO2 17 mmol/L (25-35); TOTAL BILIRUBIN 0.46 mg/dL (0.20-1.00)
[2019-01-08] MEDS: PROTONIX IV SCH ×2 (08:10→20:00)
[2019-01-08] MEDS: SODIUM CHLORIDE 0.9% INJ SCH ×2 (08:11→20:00)
--- NOTE | 2019-01-08 08:18 | EKG Report ---
Test Performed on : 01/07/2019 07:02:49 AM Test Reason : chest pain Blood Pressure : / mmHG Vent. Rate : 122 BPM Atrial Rate : 122 BPM P-R Int : 142 ms QRS Dur : 088 ms QT Int : 332 ms P-R-T Axes : 072 065 060 degrees QTc Int : 473 ms Sinus tachycardia. Possible Anterior infarct , age undetermined Abnormal ECG No previous ECGs available Unconfirmed Result
[2019-01-08] MEDS: REGLAN IV PRN ×2 (09:17→23:23)
--- NOTE | 2019-01-08 09:55 | PROGRESS NOTE ---
DATE: 01/08/2019 INTERVAL HISTORY: Ms. Mays was in the ICU. She did not have any acute overnight events. She has not had any more hematemesis episodes. She continues to have abdominal pain for which I have to increase the hydromorphone dose. Her DKA has almost resolved. SUBJECTIVE: She is complaining of pain in the throat, chest, and abdomen. VITALS: She had a fever of 100 degrees Fahrenheit, pulse of 97, respiratory rate 16, blood pressure 130/69, saturating 96% on room air. PHYSICAL EXAMINATION: She appears in mild to moderate distress because of pain. Oral cavity is dry with old flecks of blood. Air entry bilaterally equal. No wheeze, rhonchi, or crackles. S1 and S2 normal. Tachycardic. No murmur, rub, or gallop. Abdomen is soft. Generalized tender, especially in the epigastric region. Active bowel sounds. No lower extremity edema. She does have tenderness affecting chest and epigastric region. She has urine catheter, right-sided internal jugular central venous line. LABS: Suggestive of improving leukocytosis, stable hemoglobin, stable platelet count, resolution of acidosis, hypernatremia, hyperchloremia, low bicarbonate, and anion gap of 15. She does have hypophosphatemia. She is currently on D5 half-normal saline and insulin drip. MICROBIOLOGY: Urine culture, no growth to date. Blood culture, no growth to date. IMAGING: EKG had sinus tachycardia. No other new imaging. ASSESSMENT AND PLAN: 1. Diabetic ketoacidosis in the setting of undiagnosed new onset diabetes mellitus. Continue patient according to diabetic ketoacidosis protocol and keep her nothing per oral currently, considering her persistent nausea and vomiting. Continue insulin drip and D5. Her hemoglobin A1c was more than 15. 2. Hematemesis and upper gastrointestinal bleed in the setting of intractable nausea, vomiting, and persistent abdominal pain. Her hematemesis has resolved and hemoglobin is stable. However, she continues to have nausea and chest and abdominal pain. CT scan of the chest and abdomen did not detect any perforation. I am suspecting diabetic gastroparesis versus peptic ulcer disease versus acute gastritis. Continue intravenous Protonix twice a day. She has not been able to take sucralfate. I will consult gastroenterology for need for upper endoscopy depending on her course. 3. Acute kidney injury with electrolyte abnormalities in the setting of diabetic ketoacidosis, resolved after intravenous fluid resuscitation. 4. Tobacco abuse with active smoking. She is denying any tobacco withdrawal at the moment. I will continue to monitor. 5. Others. Continue hydromorphone as needed for abdominal pain, electrolyte repletion as per diabetic ketoacidosis protocol, add metoclopramide for persistent nausea and vomiting. 6. Disposition. More than 30 minutes of critical care time were spent in taking care of this patient. Plan of care discussed with her. I will continue to monitor patient in intensive care unit. I reevaluated the patient in ICU. She continues to have significant abdominal pain. GI team is in ICU and I have been informed that an EGD is planned. I discussed the plan of care with patient's aunt at bedside who I assume is a next surrogate. I answered all of her questions. cc: Michel Pierce MD [facility]TD[facility]
[2019-01-08 10:28] LABS: MAGNESIUM 2.2 mg/dL (1.5-2.7); PHOSPHORUS 1.6 mg/dL (2.7-4.5)
[2019-01-08 10:32] LABS: AGAP 13; BUN 10 mg/dL (8-22); CALCIUM 8.8 mg/dL (8.8-10.2); CHLORIDE 117 mmol/L (98-107); COSMO 302; CREATININE 0.5 mg/dL (0.5-0.9); ESTIMATED GFR > 60; GLUCOSE 219 mg/dL (70-104); POTASSIUM 3.7 mmol/L (3.5-5.1); SODIUM 149 mmol/L (136-145); TCO2 19 mmol/L (25-35)
[2019-01-08] MEDS: PHENERGAN IV PRN ×3 (11:46→19:55)
[2019-01-08] MEDS: G.I. COCKTAIL PO SCH ×3 (13:08→17:14)
[2019-01-08] MEDS: LEVSIN-SL SL SCH ×3 (13:08→17:14)
[2019-01-08 16:22] LABS: MAGNESIUM 2.2 mg/dL (1.5-2.7); PHOSPHORUS 1.5 mg/dL (2.7-4.5)
[2019-01-08 16:25] LABS: AGAP 13; BUN 8 mg/dL (8-22); CALCIUM 8.8 mg/dL (8.8-10.2); CHLORIDE 115 mmol/L (98-107); COSMO 301; CREATININE 0.5 mg/dL (0.5-0.9); ESTIMATED GFR > 60; GLUCOSE 222 mg/dL (70-104); POTASSIUM 3.8 mmol/L (3.5-5.1); SODIUM 149 mmol/L (136-145); TCO2 21 mmol/L (25-35)
--- NOTE | 2019-01-08 17:48 | GASTROENTEROLOGY CONSULTATION ---
DATE: 01/08/2019 REASON FOR CONSULTATION: Intractable nausea, vomiting, abdominal pain. HISTORY OF PRESENT ILLNESS: This is a 43-year-old, female with no prior medical history. Per records, the patient is originally from [place]. Her aunt is with her. They had attended the patient's mother's in [place] on . They were traveling back to [place]. Patient had become sick on Tuesday. Per aunt's report, they stopped at a hotel here locally. Patient's symptoms worsened to the point that 911 was called due to altered mental status. Per records the patient was found to have a blood glucose of over 600. Patient was brought into the emergency room, and workup revealed diabetic ketoacidosis. Patient is currently on an insulin drip. She is complaining of nausea and vomiting with abdominal pain. Most of information is obtained from the aunt. The patient is awake and alert, but she is in pain and not able to assist with full review of systems. She is having episodes of dry heaves at the time of my evaluation. The nurse had emesis contents available noted to be brownish in color. The patient did report some hematemesis. No reported fever or chills. The aunt states that patient had not really eaten much over the last several days. As noted her symptoms continued to progress, and she had altered mental status so 911 was called from the hotel they were stating at. PAST MEDICAL HISTORY: None reported. PAST SURGICAL HISTORY: None reported. ALLERGIES: No known drug allergies. HOME MEDICATIONS: No home medications reported. SOCIAL HISTORY: Positive for tobacco use. No reported alcohol or illicit drug use. REVIEW OF SYSTEMS: Per history of present illness. PHYSICAL EXAMINATION: Vital Signs: Temperature 98.8 degrees, pulse 97, respirations 17, blood pressure 120/75. General: The patient is awake and alert. She is complaining of diffuse abdominal pain along with nausea and episodes of vomiting. At the time of my evaluation, patient was having dry heaves. She is being treated for diabetic ketoacidosis. This is a new diagnosis of diabetes for the patient. HEENT: Normocephalic, atraumatic. Pupils equal, round, reactive to light. Sclerae nonicteric. Cardiovascular: Regular rate and rhythm. Pulmonary: Lung sounds essentially clear. Abdomen: Soft, with tenderness on palpation, hypoactive bowel sounds. Neurological: She is awake and alert. She is complaining of severe abdominal pain along with nausea and vomiting. DIAGNOSTIC RESULTS: Laboratory: Hematology - WBC 19.95, hemoglobin 36.7, MCV 78.6, platelets 421,000. Chemistry: Sodium 149, potassium 3.8, chloride 115, CO2 21, BUN 8, creatinine 0.5, glucose 222. Calcium 8.8, phosphorus 1.5, magnesium 2.2. Total bilirubin 0.46, AST 16, ALT 15, alkaline phosphatase 135. Toxicology drug screen: None detected. Acetone level moderate. IMAGING: Abdominal and chest CT scan: 1. Findings showing thickening of the esophageal wall, possibly esophagitis. No evidence of esophageal perforation. 2. Focal narrowing of short segment of the ascending colon. ASSESSMENT AND PLAN: 1. Diabetic ketoacidosis. Patient is on diabetic ketoacidosis protocol with insulin drip. 2. New onset diabetes mellitus. Continuing on insulin drip. 3. Intractable nausea, vomiting, and abdominal pain. Patient has been started on proton pump inhibitor. Patient is also receiving Carafate and gastrointestinal cocktail. Continue symptomatic treatment. 4. Leukocytosis. Antibiotics have been started. Blood cultures have been ordered. 5. Gastrointestinal symptoms possibly related to new onset diabetic ketoacidosis. Continue current protocol. Continue symptomatic treatment and supportive care. Further plans will be made according to her progress. Further gastrointestinal workup will be made if symptoms do not improve. Continue proton pump inhibitor, Carafate and gastrointestinal cocktail. I have discussed this case with Dr. Power, and he has also seen and evaluated the patient. Thank you for this consultation. Dictated by SHELBY Arndt for Jayesh Power MD cc: SHELBY Rios MD
[2019-01-08] MEDS: SODIUM CHLORIDE 0.9% INJ PRN (19:54)
[2019-01-08 21:01] LABS: AGAP 10; BUN 7 mg/dL (8-22); CALCIUM 8.6 mg/dL (8.8-10.2); CHLORIDE 113 mmol/L (98-107); COSMO 295; CREATININE 0.4 mg/dL (0.5-0.9); ESTIMATED GFR > 60; GLUCOSE 223 mg/dL (70-104); MAGNESIUM 2.2 mg/dL (1.5-2.7); PHOSPHORUS 1.1 mg/dL (2.7-4.5); POTASSIUM 3.3 mmol/L (3.5-5.1); SODIUM 146 mmol/L (136-145); TCO2 23 mmol/L (25-35)
[2019-01-09] MEDS: CARAFATE LIQUID PO SCH ×4 (01:04→21:57)
[2019-01-09 01:15] LABS: AGAP 10; BUN 7 mg/dL (8-22); CALCIUM 8.7 mg/dL (8.8-10.2); CHLORIDE 115 mmol/L (98-107); COSMO 297; CREATININE 0.4 mg/dL (0.5-0.9); ESTIMATED GFR > 60; GLUCOSE 186 mg/dL (70-104); PHOSPHORUS 1.1 mg/dL (2.7-4.5); POTASSIUM 3.6 mmol/L (3.5-5.1); SODIUM 148 mmol/L (136-145); TCO2 23 mmol/L (25-35)
[2019-01-09] MEDS: PHENERGAN IV PRN ×3 (02:47→21:34)
[2019-01-09] MEDS: SODIUM CHLORIDE 0.9% INJ PRN ×3 (02:48→21:34)
[2019-01-09] MEDS: DILAUDID IV PRN ×4 (02:48→19:43)
[2019-01-09 05:49] LABS: AGAP 11; BUN 7 mg/dL (8-22); CALCIUM 8.5 mg/dL (8.8-10.2); CHLORIDE 114 mmol/L (98-107); COSMO 299; CREATININE 0.4 mg/dL (0.5-0.9); ESTIMATED GFR > 60; GLUCOSE 192 mg/dL (70-104); PHOSPHORUS 1.1 mg/dL (2.7-4.5); POTASSIUM 3.3 mmol/L (3.5-5.1); SODIUM 149 mmol/L (136-145); TCO2 24 mmol/L (25-35)
[2019-01-09 08:00] LABS: BASO# 0.01 X1000 (0.0-0.2); BASO% 0.1 % (0.0-0.8); EOS# 0.04 X1000 (0.0-0.7); EOS% 0.3 % (0.0-10.0); HEMATOCRIT 34.2 % (37.0-47.0); HEMOGLOBIN 11.2 g/dL (12.0-16.0); IMM GRAN# 0.04 X1000 (0.0-0.04); IMM GRAN% 0.3 % (0.0-0.5); LYMPH# 2.23 X1000 (1.2-3.4); MCH 26.5 PG (27-31); MCHC 32.7 g/dL (33-37); MCV 80.9 FL (81-99); MONO# 0.97 X1000 (0.11-0.59); MONO% 7.8 % (1.7-9.3); MPV 8.9 FL (7.4-10.4); NEUT# 9.12 X1000 (1.4-6.5); NEUT% 73.5 % (42.2-75.2); PLT 332 X1000 (130-400); RBC 4.23 XMIL (4.2-5.4); RDW 13.3 % (11.5-14.5); WBC 12.41 X1000 (4.8-10.8)
[2019-01-09] MEDS ORDERED: CHLORASEPTIC SPRAY MT PRN (08:03)
[2019-01-09] MEDS: POTASSIUM CHLORIDE 20 MEQ/SWI 20 MEQ/100 ML IVPB IV SCH ×2 (08:44→11:17)
[2019-01-09] MEDS: LANTUS INSULIN SUBQ SCH ×2 (08:44→08:46)
[2019-01-09] MEDS: HUMALOG SUBQ SCH ×4 (08:45→21:35)
[2019-01-09] MEDS: PROTONIX IV SCH ×2 (08:46→21:32)
[2019-01-09] MEDS: LEVSIN-SL SL SCH ×3 (08:46→16:19)
[2019-01-09] MEDS: SODIUM CHLORIDE 0.9% INJ SCH ×2 (08:47→21:33)
--- NOTE | 2019-01-09 10:00 | PROGRESS NOTE ---
DATE: 01/09/2019 INTERVAL HISTORY: No acute events overnight. Gastroenterology had evaluated the patient and has recommended conservative medical management. The patient was comfortable overnight. However, on chart review, it reveals she did require multiple doses of Dilaudid and Phenergan. In the morning time, I discussed with her about decreasing the frequency of Dilaudid. I answered all of her questions. I also encouraged her and discussed with her about her medical course and answered all of her questions. OBJECTIVE: Vital signs: Temperature of 100 degrees; however, I am informed that it through her Frias catheter. It may not be accurate. In any case I have ordered a chest x- ray. She is no longer tachycardic with heart rate of 88, respiratory 19, blood pressure 120/71, saturating 97% on room air. General: In mild distress because of throat, abdominal and chest pain. HEENT: Oral cavity is dry with old dried flecks of blood. Chest: Air entry bilateral and equal. No wheeze, rhonchi, crackles. Cardiovascular: S1, S2 normal. No murmur, rub, or gallop. Abdomen: Soft tender. Tender on epigastric and right upper quadrant region. Active bowel sounds. Extremities: No lower extremity edema. Genitourinary: She has urine catheter. Neck: Right-sided internal jugular central venous line. LABORATORY DATA: Suggestive of improving leukocytosis, microcytic anemia, normal platelet count now. Chemistry suggestive of hypernatremia, hyperchloremia, hypokalemia, and hypophosphatemia. MICROBIOLOGY: No new microbiological data. IMAGING: Chest x-ray is pending. ASSESSMENT AND PLAN: 1. Diabetic ketoacidosis in the setting of undiagnosed new onset diabetes mellitus, now resolved. I will change her insulin regimen to glargine and sliding scale lispro. We will keep checking her blood sugars every 4 hours. I will continue her on D5 half-normal saline drip for her hypernatremia, hyperchloremia and still n.p.o. status. Her HGB A1c was more than 15. 2. Intractable nausea, vomiting, chest pain, epigastric abdominal pain, and hematemesis on presentation. These symptoms continue despite resolution of DKA for more than 24 hours. I will continue symptomatic management with intravenous pantoprazole, sucralfate, hyoscyamine, and Chloraseptic spray. I will appreciate Gastroenterology recommendation for future need of EGD. I will continue Phenergan as needed for nausea and vomiting. 3. Acute kidney injury with electrolyte abnormalities in the setting of diabetic ketoacidosis, now resolved. 4. Others. She has history of tobacco abuse and does not want any nicotine patches, continue as needed hydromorphone for abdominal pain, arrange replete electrolytes. 5. Disposition. I will continue to monitor patient in ICU. Plan of care discussed with her. All of her questions have been answered. Once her chest pain and abdominal pain resolve, later on I would anticipate starting her on oral diet pending GI recommendation for future EGD. TIME SPENT: More than 30 minutes of critical care time was spent in taking care of this patient cc: Michel Pierce MD [facility]
[2019-01-09] MEDS ORDERED: HUMALOG SUBQ SCH (11:00)
[2019-01-09] MEDS: D5 1/2 NS 1,000 ML IV SCH (11:19)
--- NOTE | 2019-01-09 14:16 | GASTROENTEROLOGY PROGRESS NOTE ---
DATE: 01/09/2019 SUBJECTIVE: Patient was resting. She aroused easily. She is still complaining of some pain. Per nurse report, there has been no evidence of vomiting today. She has been tolerating sips of water. She asks for frequent pain medication and Phenergan. OBJECTIVE: Vital Signs: Temperature 97.8 degrees, pulse 89, respirations 16, blood pressure 135/85. Generally patient is awake and alert and in no acute distress. She seems to be in less pain than yesterday. She seems to have lessening of her nausea and vomiting. She is tolerating some clear liquids. Abdomen is soft, tender with palpation. Hypoactive bowel sounds. LABORATORY: Hematology: WBC 12.41, hemoglobin 11.2, hematocrit 34.2, MCV 80.9. Chemistry: Sodium 149, potassium 3.3, chloride 114, CO2 of 24, BUN 7, creatinine 0.4, glucose 192. Hemoglobin A1c was 15.7. Calcium 8.5, phosphorus 1.1. Total bilirubin 0.46, AST 16, ALT 15, alkaline phosphatase 135. ASSESSMENT AND PLAN: 1. Diabetic ketoacidosis with new onset of diabetes. Patient has been transitioned from IV insulin drip to oral medication. Continue to monitor. 2. Nausea/vomiting, abdominal pain. Symptoms have seemed to improve some since yesterday. We will continue symptomatic treatment, including PPI, Carafate. We will hold off EGD for now. We will continue to follow, and further plans will be made according to her progress. I have discussed this case with Dr. Power. Dictated by SHELBY Arndt for Jayesh Power MD cc: SHELBY Rios MD
[2019-01-09 17:45] LABS: ESTIMATED GFR > 60
[2019-01-09 17:50] LABS: AGAP 13; BUN 6 mg/dL (8-22); CALCIUM 8.5 mg/dL (8.8-10.2); CHLORIDE 102 mmol/L (98-107); COSMO 276; CREATININE 0.3 mg/dL (0.5-0.9); GLUCOSE 174 mg/dL (70-104); MAGNESIUM 1.9 mg/dL (1.5-2.7); POTASSIUM 3.4 mmol/L (3.5-5.1); SODIUM 137 mmol/L (136-145); TCO2 22 mmol/L (25-35)
[2019-01-10] MEDS: DILAUDID IV PRN ×2 (00:05→04:53)
[2019-01-10] MEDS: HUMALOG SUBQ SCH ×7 (00:07→19:53)
[2019-01-10] MEDS: D5 1/2 NS 1,000 ML IV SCH ×3 (00:08→21:12)
[2019-01-10] MEDS: CARAFATE LIQUID PO SCH ×4 (04:46→19:53)
[2019-01-10] MEDS: PHENERGAN IV PRN ×4 (04:54→21:06)
[2019-01-10 06:10] LABS: BASO# 0.02 X1000 (0.0-0.2); BASO% 0.2 % (0.0-0.8); EOS# 0.09 X1000 (0.0-0.7); HEMATOCRIT 35.7 % (37.0-47.0); HEMOGLOBIN 11.6 g/dL (12.0-16.0); IMM GRAN# 0.02 X1000 (0.0-0.04); IMM GRAN% 0.2 % (0.0-0.5); LYMPH# 2.65 X1000 (1.2-3.4); LYMPH% 28.4 % (20.5-51.1); MCH 26.1 PG (27-31); MCHC 32.5 g/dL (33-37); MCV 80.4 FL (81-99); MONO# 0.94 X1000 (0.11-0.59); MONO% 10.1 % (1.7-9.3); MPV 8.7 FL (7.4-10.4); NEUT# 5.61 X1000 (1.4-6.5); NEUT% 60.1 % (42.2-75.2); PLT 302 X1000 (130-400); RBC 4.44 XMIL (4.2-5.4); RDW 12.8 % (11.5-14.5); WBC 9.33 X1000 (4.8-10.8)
[2019-01-10 06:29] LABS: AGAP 14; BUN 4 mg/dL (8-22); CALCIUM 8.2 mg/dL (8.8-10.2); CHLORIDE 100 mmol/L (98-107); COSMO 274; CREATININE 0.3 mg/dL (0.5-0.9); ESTIMATED GFR > 60; GLUCOSE 164 mg/dL (70-104); MAGNESIUM 1.8 mg/dL (1.5-2.7); PHOSPHORUS 1.5 mg/dL (2.7-4.5); POTASSIUM 2.8 mmol/L (3.5-5.1); SODIUM 137 mmol/L (136-145); TCO2 23 mmol/L (25-35)
--- NOTE | 2019-01-10 06:34 | Diag Imaging Result Doc PS360 ---
EXAM: CHEST-PORTABLE HISTORY: Fever, ?Aspiration. eval for pneumonia TECHNIQUE: Chest single view COMPARISON: 01/07/2019 FINDINGS: The lungs are well expanded. The heart is not enlarged. There is a right jugular portacatheter. No pneumothorax. The vessels are not distended. There are no infiltrates. No effusion identified. IMPRESSION: No pneumonia. Electronically signed by Bishnu Faulkner 01/10/2019 6:32 AM
[2019-01-10] MEDS: POTASSIUM CHLORIDE 20 MEQ/SWI 20 MEQ/100 ML IVPB IV SCH ×3 (07:57→11:02)
[2019-01-10] MEDS: MAGNESIUM SULFATE 2 GM/S.W.I. 2 GM/50 ML IVPB IV SCH ×2 (07:57→11:01)
[2019-01-10] MEDS: PROTONIX IV SCH ×2 (08:00→21:26)
[2019-01-10] MEDS: LEVSIN-SL SL SCH ×3 (08:00→17:02)
[2019-01-10] MEDS: LANTUS INSULIN SUBQ SCH (08:01)
[2019-01-10] MEDS: SODIUM CHLORIDE 0.9% INJ SCH ×3 (08:01→21:26)
[2019-01-10] MEDS: ULTRAM PO PRN ×3 (09:00→21:11)
[2019-01-10] MEDS: SODIUM CHLORIDE 0.9% INJ PRN ×2 (09:01→15:07)
[2019-01-10] MEDS: LOVENOX SUBQ SCH (10:49)
--- NOTE | 2019-01-10 11:28 | PROGRESS NOTE ---
DATE: 01/10/2019 INTERVAL HISTORY: No acute event overnight. The patient's pain and nausea/vomiting have been decreasing. I am also informed by the nursing team that oftentimes, the patient is sleeping quietly and comfortably unless someone from the nursing team entered the room, at which point she starts dry heaving and starts asking for pain medications. SUBJECTIVE: At the time of my evaluation, the patient is still complaining of throat pain, stomach pain, and chest pain, and she starts crying. She appears in mild distress. We discussed about starting her on clear liquid diet. We also discussed about decreasing pain medication dose and transferring out. I answered all of her questions. I did discuss with her about her poorly controlled diabetes, electrolyte repletion. I tried to reach out to her daughter, but I could not; voicemail was full. OBJECTIVE: Temperature 98.5 degrees, pulse 104, respiratory rate 20, blood pressure 140/90, saturating 98% on room air. General: The patient appears in mild distress. Oral cavity is dry. No pallor, cyanosis, clubbing, or icterus. She has a right-sided central line, the dressing of which has come off, and I discussed with the nurse about changing the dressing. Air entry bilaterally equal. No wheeze, rhonchi, or crackles. S1, S2 normal. Tachycardic. No murmur, rub, or gallop. Abdomen is scaphoid, tender in epigastric region. Active bowel sounds. No lower extremity edema. She has a Frias catheter in place. LABORATORIES: Suggestive of resolution of leukocytosis, microcytic anemia, normal platelet count. Hypokalemia and hypomagnesemia with hypophosphatemia which is being repleted. Normal kidney function. Her blood sugars are largely within acceptable range. Her hypophosphatemia was repleted yesterday. MICROBIOLOGY: No positive data. IMAGING: Chest x-ray performed today morning did not have any pneumonia. ASSESSMENT AND PLAN: 1. Diabetic ketoacidosis in the setting of undiagnosed new onset diabetes mellitus with hemoglobin A1c more than 15, now resolved. Continue glargine and sliding scale insulin with frequent blood sugar monitoring. Continue D5 half-normal saline until her p.o. intake becomes adequate. Start her on clear liquid diet. Her electrolytes are being repleted and follow up with frequent blood glucose. 2. Intractable nausea/vomiting, chest pain, epigastric abdominal pain, and hematemesis on presentation. DKA certainly could have contributed to these symptoms. She continues to have mild to moderate epigastric pain and distress. Continue p.o. sucralfate, pantoprazole IV b.i.d., as-needed promethazine and hyoscyamine. I will stop IV hydromorphone and start her on tramadol as needed for abdominal pain. Gastroenterology on board currently recommends conservative management. 3. Acute kidney injury with electrolyte abnormalities on presentation, resolved. 4. Tobacco abuse. She is not requiring any tobacco patch at the moment. DISPOSITION: I will transfer patient to routine medical floor since she has been hemodynamically stable. I will start her on clear liquid diet. I called the patient's daughter; however, she did not chart picker, and her voicemail was not set up. Yesterday, I had discussed plan of care with the patient's aunt. All of their questions have been answered. cc: Michel Pierce MD [facility]
--- NOTE | 2019-01-10 16:36 | GASTROENTEROLOGY PROGRESS NOTE ---
DATE: 01/10/2019 SUBJECTIVE: Patient is still complaining of episodes of nausea and vomiting. She is complaining of abdominal pain, chest pain, and throat pain. We had tried to proceed with EGD today for further evaluation, but patient had received a Lovenox injection so procedure had to be canceled. OBJECTIVE: Vital Signs: Temperature 97.3 degrees, pulse 97, respirations 22, blood pressure 137/88. General: Patient is awake and alert. She is still complaining of abdominal pain and nausea with vomiting. Respiratory: Lung sounds essentially clear. Cardiovascular: Regular rate and rhythm. Abdomen: Tender with palpation. Otherwise soft. Positive bowel sounds. LABORATORY: Hematology: WBC 9.33, hemoglobin 11.6, hematocrit 35.7, MCV 80.4, platelet 302,000. Chemistry: Sodium 137, potassium 2.8, chloride 100, CO2 of 23, BUN 4, creatinine 0.3, glucose 164, calcium 8.2, phosphorus 1.5, magnesium 1.8. ASSESSMENT AND PLAN: 1. Diabetic ketoacidosis has resolved. Patient is now on sliding scale insulin and monitoring frequent blood sugars. 2. New onset diabetes. 3. Nausea, vomiting, abdominal pain, hematemesis on admission. Patient continues to have symptoms, despite improvement in her blood sugar. We had planned on EGD today, but patient received a injection. We will hold Lovenox and plan for EGD tomorrow. I have discussed the procedure with the patient, along with benefits and risks, and she wishes to proceed. Further plans will be made according to findings. Continue PPI and Carafate, p.r.n. medications for nausea/vomiting. I have discussed this case with Dr. Power. Dictated by SHELBY Arndt for Jayesh Power MD cc: SHELBY Rios MD
[2019-01-10 17:01] LABS: AGAP 11; BUN 4 mg/dL (8-22); CALCIUM 8.1 mg/dL (8.8-10.2); CHLORIDE 101 mmol/L (98-107); COSMO 273; CREATININE 0.3 mg/dL (0.5-0.9); ESTIMATED GFR > 60; GLUCOSE 134 mg/dL (70-104); MAGNESIUM 2.4 mg/dL (1.5-2.7); PHOSPHORUS 1.1 mg/dL (2.7-4.5); POTASSIUM 3.3 mmol/L (3.5-5.1); SODIUM 137 mmol/L (136-145); TCO2 25 mmol/L (25-35)
[2019-01-11] MEDS: HUMALOG SUBQ SCH ×6 (00:35→23:56)
[2019-01-11] MEDS: ULTRAM PO PRN ×2 (03:21→09:45)
[2019-01-11] MEDS: PHENERGAN IV PRN ×3 (03:21→15:52)
[2019-01-11 04:30] LABS: AGAP 14; BUN 5 mg/dL (8-22); CALCIUM 8.4 mg/dL (8.8-10.2); CHLORIDE 99 mmol/L (98-107); COSMO 273; CREATININE 0.3 mg/dL (0.5-0.9); ESTIMATED GFR > 60; GLUCOSE 162 mg/dL (70-104); MAGNESIUM 2.1 mg/dL (1.5-2.7); PHOSPHORUS 1.6 mg/dL (2.7-4.5); POTASSIUM 2.9 mmol/L (3.5-5.1); SODIUM 136 mmol/L (136-145); TCO2 23 mmol/L (25-35)
[2019-01-11] MEDS: D5 1/2 NS 1,000 ML IV SCH ×3 (06:13→19:22)
[2019-01-11] MEDS: CARAFATE LIQUID PO SCH ×4 (06:24→20:11)
[2019-01-11] MEDS: LANTUS INSULIN SUBQ SCH (09:46)
[2019-01-11] MEDS: LEVSIN-SL SL SCH ×4 (09:46→18:00)
[2019-01-11] MEDS: SODIUM CHLORIDE 0.9% INJ SCH (09:46)
[2019-01-11] MEDS: PROTONIX IV SCH (09:46)
[2019-01-11] MEDS ORDERED: POTASSIUM PHOSPHATE 30 MMOL in NS 250 ML IV ONE (10:18)
[2019-01-11] MEDS ORDERED: DILAUDID IV ONE (10:28)
--- NOTE | 2019-01-11 11:09 | PROGRESS NOTE ---
DATE: 01/11/2019 SUBJECTIVE: This patient is still complaining of throat pain, stomach pain, chest pain. She is in [id number] distress and crying at this time. She has not been tolerating too much liquid diet. I will give her a dose of pain medication IV since she is not tolerating p.o. She is scheduled for an EGD today. I will replace the potassium and phosphorus. OBJECTIVE: Vital Signs: Temperature 98.1 degrees, pulse 89, respiratory rate 16, blood pressure 136/92, oxygen saturation 99 on room air. HEENT: Head normocephalic. No trauma. Poor dentition. Neck: Supple. No JVD. Central trachea. Chest: Clear to auscultation. No wheezing. No rales. Abdomen: Soft. Tenderness to palpation at the level of the epigastric area and periumbilical area. Extremities: No edema, no clubbing, no cyanosis. Neurological Examination: The patient is alert and oriented x3. She seems to be in mild to moderate distress due to pain. Laboratory: Sodium 136, potassium 2.9, chloride 99, bicarbonate 23, BUN 5, creatinine 0.3, glucose 162, calcium 8.4, phosphorus 1.6, magnesium 2.1. ASSESSMENT AND PLAN: 1. Diabetic ketoacidosis in the setting of a new diagnosis of diabetes mellitus. Her hemoglobin A1c was more than 15, now resolved. I will continue with sliding scale insulin and pattern of blood sugar. Continue with glargine as scheduled. I will continue for now with D5 half- normal saline since she is going for an upper endoscopy today. 2. Hypokalemia with hypophosphatemia. She will receive potassium phosphate today intravenously. We will monitor this closely. 3. Intractable nausea, vomiting, chest pain, epigastric abdominal pain. As per the patient, she has been having also hematemesis. She is complaining of moderate epigastric pain and she is in distress. I will continue for now with the same treatment. She will have an endoscopy done today. 4. Acute kidney injury, resolved. 5. Hypokalemia with hypophosphatemia as above. 6. Tobacco abuse. This patient has been highly advised against tobacco use. I will continue with daily cessation education. cc: Nicolas Arguello MD
[2019-01-11] MEDS ORDERED: XYLOCAINE-MPF 2% ONE (12:15)
[2019-01-11] MEDS ORDERED: DIPRIVAN 1% ONE (12:15)
--- NOTE | 2019-01-11 13:47 | OPERATIVE NOTE ---
PROCEDURE DATE: PROCEDURE: Esophagogastroduodenoscopy and biopsy. PREOPERATIVE DIAGNOSIS: Nausea, vomiting, chest pain and epigastric pain. POSTOPERATIVE DIAGNOSES: 1. Severe esophagitis. 2. Gastritis. MEDICATION USED: MAC as per Anesthesia. SCOPE USED: Pentax gastroscope. HISTORY: This is a 43-year-old, white female admitted to hospital with nausea, vomiting, chest pain and epigastric pain. She was found to be in DKA and newly diagnosed diabetic. She has been out of DKA now, but continues to have GI symptoms. EGD was done for diagnostic purposes. DESCRIPTION OF PROCEDURE: Informed Consent was obtained from the patient. The procedure, risks, benefits, and alternatives were explained in layman's terms. She understood. All the pertinent questions were answered. Patient was brought to the endoscopy unit, and was premedicated as per Anesthesia. After adequate sedation, while she was lying in the left lateral position, the gastroscope was introduced into the posterior pharynx and advanced under direct vision into the esophagus. Esophagus in its entire length showed evidence of severe esophagitis. The mucosa was hyperemic and edematous, and erosions were noted all the way up to the upper esophagus as well. Multiple biopsies were obtained from the affected part. The GE junction was noted about 38 cm from the incisor. The scope was then passed through the esophagus into the stomach. Stomach was examined both in straight and retroflexed view, which revealed hyperemia and edema throughout the stomach including both the body and the antrum. Multiple biopsies were obtained using cold biopsy forceps. The scope was passed through the pylorus, into the duodenal bulb, and then to the second portion of duodenum which appeared to be normal. The scope was then removed. Patient tolerated the procedure well. No complications noted. Patient was then transferred to the recovery area in a stable condition. IMPRESSION: Severe esophagitis most likely peptic, however, biopsy to rule out other etiologies. Gastritis diffuse. Biopsied. RECOMMENDATIONS: I would continue her on proton pump inhibitor 40 mg Prilosec p.o. b.i.d. and continue on Carafate. Follow up the biopsy report. Depending on the pathology, further plans will be made. In the meantime, advised her to avoid NSAID. Follow antireflux measures. cc: Jayesh Power MD
[2019-01-11] MEDS: DILAUDID IV PRN ×2 (15:52→20:11)
[2019-01-11] MEDS: SODIUM CHLORIDE 0.9% INJ PRN (15:54)
[2019-01-11 17:54] LABS: AGAP 9; BUN 4 mg/dL (8-22); CALCIUM 8.4 mg/dL (8.8-10.2); CHLORIDE 101 mmol/L (98-107); COSMO 272; CREATININE 0.3 mg/dL (0.5-0.9); ESTIMATED GFR > 60; GLUCOSE 119 mg/dL (70-104); MAGNESIUM 1.9 mg/dL (1.5-2.7); PHOSPHORUS 2.5 mg/dL (2.7-4.5); SODIUM 137 mmol/L (136-145); TCO2 27 mmol/L (25-35)
[2019-01-11] MEDS: PRILOSEC PO SCH (20:11)
[2019-01-12] MEDS: DILAUDID IV PRN ×6 (00:24→22:27)
[2019-01-12] MEDS: HUMALOG SUBQ SCH ×6 (00:26→21:41)
[2019-01-12] MEDS: PHENERGAN IV PRN ×4 (00:28→22:30)
[2019-01-12] MEDS: ULTRAM PO PRN (01:42)
[2019-01-12] MEDS: CARAFATE LIQUID PO SCH ×4 (01:45→21:40)
[2019-01-12] MEDS: PRILOSEC PO SCH ×2 (07:30→21:40)
[2019-01-12] MEDS: D5 1/2 NS 1,000 ML IV SCH ×2 (07:44→18:42)
[2019-01-12 08:15] LABS: AGAP 12; ALB/GLOB RATIO 1.2; ALBUMIN 3.7 g/dL (3.5-5.0); ALKALINE PHOSPHATASE 110 U/L (32-104); BUN 5 mg/dL (8-22); CALCIUM 8.7 mg/dL (8.8-10.2); CHLORIDE 98 mmol/L (98-107); CHOLESTEROL 140 mg/dL (0-200); COSMO 274; CREATININE 0.3 mg/dL (0.5-0.9); ESTIMATED GFR > 60; GLUCOSE 122 mg/dL (70-104); GOT 13 U/L (10-30); GPT 11 U/L (10-36); HDL 32 mg/dL (45-65); LDL 87 mg/dL; MAGNESIUM 1.9 mg/dL (1.5-2.7); PHOSPHORUS 2.3 mg/dL (2.7-4.5); POTASSIUM 3.4 mmol/L (3.5-5.1); SODIUM 138 mmol/L (136-145); TCO2 28 mmol/L (25-35); TOTAL BILIRUBIN 0.36 mg/dL (0.20-1.00); TOTAL PROTEIN 6.7 g/dL (6.3-8.3); TRIGLYCERIDES 104 mg/dL (35-135); VLDL 21 mg/dL
[2019-01-12 09:33] LABS: BASO# 0.02 X1000 (0.0-0.2); BASO% 0.2 % (0.0-0.8); EOS# 0.14 X1000 (0.0-0.7); EOS% 1.5 % (0.0-10.0); HEMATOCRIT 39.5 % (37.0-47.0); HEMOGLOBIN 13.1 g/dL (12.0-16.0); IMM GRAN# 0.02 X1000 (0.0-0.04); IMM GRAN% 0.2 % (0.0-0.5); LYMPH# 2.78 X1000 (1.2-3.4); LYMPH% 30.2 % (20.5-51.1); MCH 26.3 PG (27-31); MCHC 33.2 g/dL (33-37); MCV 79.3 FL (81-99); MONO# 0.77 X1000 (0.11-0.59); MONO% 8.4 % (1.7-9.3); MPV 8.6 FL (7.4-10.4); NEUT# 5.47 X1000 (1.4-6.5); NEUT% 59.5 % (42.2-75.2); PLT 354 X1000 (130-400); RBC 4.98 XMIL (4.2-5.4); RDW 12.5 % (11.5-14.5)
[2019-01-12] MEDS: LANTUS INSULIN SUBQ SCH (10:00)
[2019-01-12] MEDS: LEVSIN-SL SL SCH ×3 (10:00→16:56)
[2019-01-12] MEDS: LOVENOX SUBQ SCH (10:00)
[2019-01-12] MEDS: G.I. COCKTAIL PO SCH ×2 (13:07→16:56)
--- NOTE | 2019-01-12 13:18 | PROGRESS NOTE ---
DATE: 01/12/2019 SUBJECTIVE: This patient is resting in bed, but she is complaining of severe pain mostly swallowing, and epigastric pain. She came in with diabetic ketoacidosis in the setting of new onset diabetes, intractable nausea, vomiting, and she is status post upper endoscopy that showed severe esophagitis, most likely peptic. OBJECTIVE: Vital Signs: Temperature 98.7 degrees, pulse 93, respiratory rate 18, blood pressure 127/79, oxygen saturation 99 on room air. HEENT: Head normocephalic. No trauma. PERRLA. Poor dentition. Neck: Supple. No JVD. Central trachea. Chest: Clear to auscultation. No wheezing. No rales. Abdomen: Soft. Tenderness to palpation at the level of the epigastric area and periumbilical area. Extremities: No edema, no clubbing, no cyanosis. Neurological: The patient is alert and oriented x3. She seems to be feeling better compared with yesterday. LABORATORY DATA: WBC 9.2, hemoglobin 13.1, hematocrit 39.5, platelets 354,000. Sodium 134, potassium 3.4, chloride 98, bicarbonate 28, BUN 5, creatinine 0.3, glucose 122, calcium 8.7, phosphorus 2.3. AST 13, ALT 10, alkaline phosphatase 110, albumin 3.7. ASSESSMENT AND PLAN: 1. Diabetic ketoacidosis in the setting of new diagnosis of diabetes mellitus. Her hemoglobin A1c was more than 15, now resolved. We will continue with the same management. She seems to be doing better with glargine schedule. 2. Hypokalemia with hypophosphatemia, I will replace the electrolytes with potassium phosphate today. 3. Intractable nausea, vomiting, chest pain, epigastric abdominal pain, status post esophagogastroduodenoscopy that showed severe esophagitis. Will continue with proton pump inhibitors and Carafate. 4. Severe esophagitis, as above. 5. Acute kidney injury, resolved. 6. Tobacco abuse. This patient has been highly advised against tobacco use. I will continue with daily cessation education. cc: Nicolas Arguello MD
[2019-01-12] MEDS ORDERED: POTASSIUM PHOSPHATE 30 MMOL in NS 250 ML IV ONE (13:44)
--- NOTE | 2019-01-12 13:53 | GASTROENTEROLOGY PROGRESS NOTE ---
DATE: 01/12/2019 Patient continues to complain of esophageal/chest pain. She states she is not able to eat much. EGD on 01/11/2019 showed severe esophagitis and gastritis. Biopsies pending. She is currently receiving PPI twice daily along with Carafate. OBJECTIVE: Vital Signs: Temperature 97.6 degrees, pulse 90, respirations 18, blood pressure 123/83. LABORATORY: Hematology. WBC 9.33, hemoglobin 11.6, hematocrit 35.7, MCV 80.4. Chemistry. Sodium 137, potassium 4.0, chloride 101, CO2 27, BUN 4, creatinine 0.3, glucose 119. ASSESSMENT AND PLAN: 1. Severe esophagitis. 2. Gastritis. 3. Newly diagnosed diabetes with recent diabetic ketoacidosis. PLAN: Continue symptomatic treatment and supportive care. Follow antireflux measures. Continue PPI twice daily. Continue Carafate. We will add GI cocktail 3 times a day. Further plans to be made according to her progress. We will follow on her pathology results. I have discussed this case with Dr. Power. Dictated by SHELBY Arndt for Jayesh Power MD cc: SHELBY Rios MD
[2019-01-12] MEDS: SODIUM CHLORIDE 0.9% INJ PRN (22:30)
[2019-01-13] MEDS: HUMALOG SUBQ SCH ×3 (00:09→09:51)
[2019-01-13] MEDS: CARAFATE LIQUID PO SCH ×2 (02:03→09:50)
[2019-01-13] MEDS: DILAUDID IV PRN ×2 (02:03→05:48)
[2019-01-13] MEDS: D5 1/2 NS 1,000 ML IV SCH (02:06)
[2019-01-13] MEDS: PHENERGAN IV PRN (05:50)
[2019-01-13] MEDS: SODIUM CHLORIDE 0.9% INJ PRN (05:51)
[2019-01-13] MEDS: PRILOSEC PO SCH (06:40)
[2019-01-13 08:08] VITALS: BP 119/73
[2019-01-13 08:19] LABS: IRON SATURATION 11 %; TIBC 270 ug/dL; TOTAL IRON 30 ug/dL (49-151); UNBOUND IRON 240 ug/dL (112-346)
[2019-01-13 08:34] LABS: AGAP 12; BUN 4 mg/dL (8-22); CALCIUM 9.3 mg/dL (8.8-10.2); CHLORIDE 100 mmol/L (98-107); COSMO 281; CREATININE 0.3 mg/dL (0.5-0.9); ESTIMATED GFR > 60; GLUCOSE 184 mg/dL (70-104); POTASSIUM 3.1 mmol/L (3.5-5.1); SODIUM 140 mmol/L (136-145); TCO2 28 mmol/L (25-35)
[2019-01-13 08:35] LABS: FERRITIN 88 ng/mL (13-150)
[2019-01-13] MEDS ORDERED: KLOR-CON PO ONE (08:54)
[2019-01-13] MEDS ORDERED: POTASSIUM CHLORIDE 20% LIQUID PO ONE (09:30)
[2019-01-13] MEDS: LANTUS INSULIN SUBQ SCH (09:50)
[2019-01-13] MEDS: G.I. COCKTAIL PO SCH (09:50)
--- NOTE | 2019-01-13 10:03 | PROGRESS NOTE ---
DATE: 01/13/2019 SUBJECTIVE: Patient is resting comfortably in bed, she is feeling better today. She will be discharged today. I discussed with the patient the whole treatment, her insulin treatment as well as the metformin, which I will start on her. She needs to see a primary care doctor in a week. She needs to take notes of the blood sugar reading which I recommended to take it before meals and before bedtime and take it to the doctor to make adjustments. This has been discussed with the patient and also I called her daughter by phone, Mrs. Comer, she needs to follow up also with Gastroenterology Department in 3 to 4 weeks due to her severe esophagitis. I recommended to the patient to follow a healthy diet, diabetic diet, she needs to avoid spicy food, too much condiments, and for now strong/solid food due to her severe esophagitis. She cannot take NSAIDs and this has been discussed in detail with the patient. OBJECTIVE: Vital Signs: Temperature 98 degrees, pulse 87, respiratory rate 17, blood pressure 118/73, oxygen saturation 98 on room air. HEENT: Head normocephalic. No trauma. PERRLA. Neck: Supple. No JVD. No masses. Central trachea. Chest: Clear to auscultation. No wheezing. No rales. Abdomen: Soft. Some tenderness to palpation at the level of the epigastric area. Positive bowel sounds. No signs of peritoneal irritation. Extremities: No edema. No clubbing. No cyanosis. Neurological: The patient is alert and oriented x3. No focal neurological deficits. LABORATORY DATA: Sodium 140, potassium 3.1, chloride 100, bicarbonate 28, BUN 4, creatinine 0.3 glucose 184, calcium 9.3. ASSESSMENT AND PLAN: 1. Diabetic ketoacidosis, resolved. 2. Uncontrolled type 2 diabetes. Hemoglobin A1c more than 15. She will be discharged with a long-acting insulin and metformin, follow up with primary care doctor in 1 week. Case has been discussed with the patient and the daughter by phone. 3. Hypokalemia. I will replace the potassium today. 4. Intractable nausea, vomiting and chest pain. This is better, likely secondary to severe esophagitis. She is status post EGD. 5. Severe esophagitis. Continue with PPIs and Carafate. Avoid NSAIDs and spicy food. 6. Acute kidney injury, resolved. 7. Tobacco abuse. This patient has been highly advised against tobacco use. I have been counseling this patient on a daily basis. cc: Nicolas Arguello MD
--- NOTE | 2019-01-13 20:26 | DISCHARGE SUMMARY ---
ADMISSION DATE: 01/07/2019 DISCHARGE DATE: 01/13/2019 PRIMARY CARE PHYSICIAN: None. ADMISSION DIAGNOSES: 1. Diabetic ketoacidosis. 2. New onset diabetes. 3. Right-sided chest pain. 4. Gastrointestinal bleed with positive gastro occult and positive stool for occult blood. 5. Leukocytosis. 6. Acute kidney injury. DISCHARGE DIAGNOSES: 1. Diabetic ketoacidosis in the setting of new diagnosis of diabetes mellitus with hemoglobin A1c more than 15, now resolved. 2. Intractable nausea, vomiting, chest pain, epigastric abdominal pain status post EGD that showed severe esophagitis. 3. Acute kidney injury resolved. 4. Tobacco abuse. SUMMARY OF FINDINGS: This is a 43-year-old female who presented to the emergency room after 911 was called by her aunt when they found her confused, had been in her usual state of health until 3 days prior she developed a sudden onset of nausea, vomiting associated with abdominal pain. It became intractable with associated right-sided chest pain and black vomitus. The aunt found her confused on the morning of arrival and called EMS. She was altered with dry heaves and a blood glucose reading of greater than 600. She was found to be in DKA with new onset diabetes, was placed in the intensive care unit on the DKA protocol. We also consulted GI who on 01/11/2019 did an EGD and found severe esophagitis and gastritis. She was placed on omeprazole 40 mg p.o. b.i.d., Carafate 1 g p.o. q.6 hours. Blood sugar this morning was down to 184 and it is now felt that she can safely be discharged home today. DISCHARGE MEDICATIONS: A prescription for omeprazole 40 mg p.o. b.i.d., Pettus 7.5 p.o. q.6 hours p.r.n. #20 with no refills, Lantus SoloSTAR ER 40 units subcutaneous q.a.m. #1 insulin pen with 3 refills, metformin 500 mg p.o. b.i.d., omeprazole 40 mg p.o. b.i.d. and Carafate 1 g p.o. 4 times daily #160 with no refills. FOLLOWUP: She needs to obtain a primary care physician and followup and also will need to follow up with GI in 3 to 4 weeks. All discharge instructions have been reviewed with the patient and she verbalized understanding. TIME SPENT: 33 minutes. Dictated by SHELBY Gonzalez for Nicolas Arguello MD cc: MD Nicolas Calix MD
== END 2019-01-13 12:17 | disposition home or self-care (01) | DRG 638 ==
LOC: SUPCPDRO → ED 06:52 → SUATTDRO 10:06 → ICU 10:06 → 3N 01-10 20:47
PROVIDERS: ATTEND Internal Medicine
CPT/HCPCS: 51702; 71010; 71045; 71250; 74150; 80048; 80053; 80061; 80101; 80301; 80307; 80320; 80324; 80345; 80346; 80353; 80358; 80361; 80365; 81001; 82009; 82055; 82270; 82271; 82550; 82553; 82607; 82728; 82746; 82805; 82948; 83036; 83540; 83550; 83605; 83690; 83735; 83880; 83992; 84100; 84484; 85025; 85027; 85379; 85610; 85730; 87040; 87081; 87088; 87275; 87276; 87430; 87804; 88305; 88312; 88313; 93005; 96374; 96375; 96376; 97161; 99285; A9270; C9113; G0431; G0434; G0479; G0480; G6040; J1170; J1200; J1650; J1815; J2270; J2405; J2550; J2765; J3475; J3480; J7030; J7042; J7050; S0028; S0164; XXXXX